=== PATIENT | female | born 1935 ===

== ENCOUNTER 2024-06-11 03:27 | Emergency (ER) | payer MEDICARE ==
[~2024-06-11] VITALS: Ht 172.7 cm; Wt 63.5 kg
[2024-06-11 03:29] VITALS: BP 154/78; PULSE 61; RESP 16; TEMP 98.2; O2SAT 98
[2024-06-11 03:55] VITALS: O2SAT 99
[2024-06-11 04:03] LABS: BASOPHILS % (AUTO) 1.1 % (0.0-2.0); EOSINOPHILS % (AUTO) 0.5 % (0.0-4.0); HEMATOCRIT 35.9 % (36-48); HEMOGLOBIN 12.2 g/dL (12.0-16.0); LYMPHOCYTES # (AUTO) 1.1 K/uL (2.5-16.5); LYMPHOCYTES % (AUTO) 29.1 % (20.5-51.1); MEAN CORPUSCULAR HEMOGLOBIN 35 pg (27-31); MEAN CORPUSCULAR HGB CONC 34 g/dL (33-37); MEAN CORPUSCULAR VOLUME 103.6 fL (80-94); MONOCYTES # (AUTO) 0.4 K/uL (0.8-1.0); MONOCYTES % (AUTO) 10.8 % (1.7-9.3); NEUTROPHILS # (AUTO) 2.3 K/uL (1.8-7.7); NEUTROPHILS % (AUTO) 58.5 % (42.2-75.2); PLATELET COUNT (AUTO) 224 K/uL (140-450); RED BLOOD CELL COUNT(AUTO) 3.46 MIL/uL (4.20-5.40); RED CELL DISTRIBUTION WIDTH 15.4 % (11.6-13.7); WHITE BLOOD COUNT (AUTO) 3.9 K/uL (4.8-10.8)
[2024-06-11] MEDS: ONDANSETRON 4 MG/2 ML VIAL IVP ONE (04:11)
[2024-06-11] MEDS: MORPHINE SULFATE 4 MG/ML SYR IVP ONE (04:11)
[2024-06-11 04:19] LABS: ANION GAP 11.2 (8-16); CALCIUM 8.6 mg/dL (8.5-10.1); CARBON DIOXIDE 30.5 mmol/L (21-32); CHLORIDE 105 mmol/L (98-107); CREATININE 0.6 mg/dL (0.6-1.3); GLUCOSE 94 mg/dL (74-106); SODIUM SERUM 144 mmol/L (136-145); UREA NITROGEN, BLOOD 15 mg/dL (7-18)
[2024-06-11 04:20] LABS: POTASSIUM 2.7 mmol/L (3.5-5.1)
[2024-06-11] MEDS: POTASSIUM CHLORIDE 10 MEQ TABER PO ONE (04:58)
[2024-06-11 06:32] VITALS: BP 126/66; PULSE 57; RESP 14; TEMP 98.4; O2SAT 99
== END 2024-06-11 04:28 | disposition short-term general hospital (02) ==
LOC: MED 03:27
DX: S70.02XA Contusion of left hip, initial encounter (principal); R79.89 Other specified abnormal findings of blood chemistry; Z96.642 Presence of left artificial hip joint; Z88.1 Allergy status to other antibiotic agents; W18.39XA Other fall on same level, initial encounter; Y92.89 Other specified places as the place of occurrence of the external cause; Y93.89 Activity, other specified; Y99.8 Other external cause status
CPT/HCPCS: 36415; 71045; 73502; 80048; 83880; 84484; 85025; 93005; 96374; 96375; 99285; J2270; J2405; Q0092